=== PATIENT | male | born 1945 | race Caucasian/White ===

== ENCOUNTER → 2021-05-03 14:08 | Outpatient (CLI) | payer MEDICARE, OTHER, SELFPAY ==
--- NOTE | 2021-05-03 14:26 | XR_ITS ---
PROCEDURE: XR HAND RT MIN 3V CLINICAL INDICATION: right hand pain Posttraumatic pain COMPARISON: No exams were available for comparison FINDINGS: A nondisplaced fracture involves the proximal aspect of the 5th metacarpal. There are osteoarthritic changes of the distal radial ulnar joint osteoarthritic changes are present involving the 1st metacarpal-carpal joint. The 2nd and 3rd PIP joint, the 1st interphalangeal joint, and the 2nd 3rd and 4th DIP joints. There are subchondral cystic changes IMPRESSION: Nondisplaced fracture proximal aspect of 5th metacarpal. Osteoarthritic changes with subchondral cystic changes Dictated by: Andry Mario MD 05/03/2021 15:39 Andry Mario MD in [place] 05/03/2021 15:39
--- NOTE | 2021-05-03 14:26 | XR_ITS ---
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 Nondisplaced fracture involves the proximal aspect of the 5th metacarpal. There is generalized vascular calcification IMPRESSION: Osteoarthritis. Nondisplaced fracture proximal aspect of the 5th metacarpal Dictated by: Andry Mario MD 05/03/2021 15:40 Andry Mario MD in [place] 05/03/2021 15:40
== END ==
PROVIDERS: Visit Provider Orthopaedic Surgery
DX: S62.101A Fracture of unspecified carpal bone, right wrist, initial encounter for closed fracture (principal); M79.641 Pain in right hand
CPT/HCPCS: 73110; 73130